=== PATIENT | male | born 1985 | race Native Hawaiian/Other Pacific Islander ===

== ENCOUNTER 2016-06-02 03:59 | Emergency (ER) | payer SELFPAY ==
[2016-06-02] MEDS ORDERED: MORPHINE ONE (04:21)
[2016-06-02] MEDS ORDERED: ZOFRAN ONE ×2 (04:21→08:39)
[2016-06-02] MEDS ORDERED: ZOFRAN IM ONE ×2 (04:30→09:26)
[2016-06-02] MEDS ORDERED: MORPHINE IM ONE (04:30)
--- NOTE | 2016-06-02 07:32 | XRay Report ---
LEFT ANKLE, 3 views: History: Pain, deformity. There is severe soft tissue swelling. Subtle nondisplaced fracture lines are identified in the distal tibial metaphysis. Extension to the tibiotalar joint is demonstrated on the lateral view. No calcified callus. The distal fibula and talar dome are unremarkable. Normal ankle mortise. IMPRESSION: Nondisplaced distal tibial fracture with extension to the tibiotalar joint. Consider further evaluation with CT. Soft tissue swelling.
--- NOTE | 2016-06-02 07:34 | XRay Report ---
LEFT TIBIA/FIBULA: History: Pain after fall. Left ankle exam performed same day was reviewed. A nondisplaced oblique fracture through the proximal fibular shaft is identified. This fracture is approximately 13 cm distal to the knee joint. No calcified callus. The distal tibial fracture with extension to the tibiotalar joint is again noted. Severe soft tissue swelling. IMPRESSION: Proximal fibular fracture and distal tibial fracture, traumatic.
[2016-06-02] MEDS ORDERED: BENADRYL PO ONE ×2 (08:40→09:26)
[2016-06-02] MEDS ORDERED: DILAUDID ONE (08:40)
[2016-06-02] MEDS ORDERED: DILAUDID IM ONE (08:43)
[2016-06-02] MEDS ORDERED: ZOFRAN ODT PO ONE (08:43)
--- NOTE | 2016-06-02 08:59 | Emergency Department Report ---
ED General Adult HPI - General Chief complaint: Extremity Injury, Lower Stated complaint: LT LEG INJURY Time Seen by Provider: 06/02/16 08:09 Source: patient Mode of arrival: Wheelchair Limitations: No Limitations - History of Present Illness Initial comments: Patient states that he fell down the stairs yesterday evening. He denies any other injury besides his left ankle. He complains of moderate pain there but no weakness or numbness distally. -: Sudden Location: left, lower extremity Quality: aching Consistency: intermittent Improves with: none Worsens with: movement Associated Symptoms: denies other symptoms Treatments Prior to Arrival: none - Related Data Previous Rx's Medication Instructions Recorded Last Taken Type Acetaminophen/Codeine [Tylenol #3] 1 tab PO Q6H PRN #20 tab 11/18/14 Unknown Rx Albuterol Sulfate [Ventolin HFA] 2 puff IH Q4H PRN #1 hfa.aer.ad 11/18/14 Unknown Rx Amoxicillin [Trimox CAP] 500 mg PO Q8H #30 capsule 11/18/14 Unknown Rx Cyclobenzaprine [Flexeril 10 MG 10 mg PO TID PRN #30 tablet 11/18/14 Unknown Rx TAB] predniSONE [Deltasone] 40 mg PO QDAY #10 tab 11/18/14 Unknown Rx Ibuprofen [Motrin 800 MG tab] 800 mg PO Q8HR PRN #30 tablet 09/13/15 Unknown Rx Oxycodone HCl/Acetaminophen 1 each PO Q6HR PRN #20 tablet 11/16/15 Unknown Rx [Percocet 7.5/325 mg] Rifampin 300 mg PO BID #20 capsule 11/16/15 Unknown Rx Sulfamethoxazole/Trimethoprim 1 each PO BID #28 tablet 11/16/15 Unknown Rx [Bactrim DS TAB] Oxycodone HCl/Acetaminophen 1 each PO Q6HR PRN #20 tablet 06/02/16 Unknown Rx [Percocet 7.5/325 mg] Allergies Allergy/AdvReac Type Severity Reaction Status Date / Time No Known Allergies Allergy Verified 06/02/16 04:17 ED Review of Systems ROS: Stated complaint: LT LEG INJURY Other details as noted in HPI Comment: All other systems reviewed and negative ED Past Medical Hx - Past Medical History Previous Medical History?: Yes Hx Asthma: Yes - Surgical History Past Surgical History?: Yes - Social History Smoking Status: Current Every Day Smoker Substance Use Type: Alcohol - Medications Home Medications: Home Medications Medication Instructions Recorded Confirmed Last Taken Type Acetaminophen/Codeine [Tylenol #3] 1 tab PO Q6H PRN #20 tab 11/18/14 Unknown Rx Albuterol Sulfate [Ventolin HFA] 2 puff IH Q4H PRN #1 hfa.aer.ad 11/18/14 Unknown Rx Amoxicillin [Trimox CAP] 500 mg PO Q8H #30 capsule 11/18/14 Unknown Rx Cyclobenzaprine [Flexeril 10 MG 10 mg PO TID PRN #30 tablet 11/18/14 Unknown Rx TAB] predniSONE [Deltasone] 40 mg PO QDAY #10 tab 11/18/14 Unknown Rx Ibuprofen [Motrin 800 MG tab] 800 mg PO Q8HR PRN #30 tablet 09/13/15 Unknown Rx Oxycodone HCl/Acetaminophen 1 each PO Q6HR PRN #20 tablet 11/16/15 Unknown Rx [Percocet 7.5/325 mg] Rifampin 300 mg PO BID #20 capsule 11/16/15 Unknown Rx Sulfamethoxazole/Trimethoprim 1 each PO BID #28 tablet 11/16/15 Unknown Rx [Bactrim DS TAB] Oxycodone HCl/Acetaminophen 1 each PO Q6HR PRN #20 tablet 06/02/16 Unknown Rx [Percocet 7.5/325 mg] ED Physical Exam - General Limitations: No Limitations General appearance: alert, in no apparent distress - Head Head exam: Present: atraumatic, normocephalic - Eye Eye exam: Present: normal appearance. Absent: scleral icterus - ENT ENT exam: Present: normal exam, mucous membranes moist - Neck Neck exam: Present: normal inspection. Absent: tenderness - Respiratory Respiratory exam: Present: normal lung sounds bilaterally. Absent: respiratory distress - Cardiovascular Cardiovascular Exam: Present: regular rate, normal rhythm. Absent: systolic murmur, diastolic murmur, rubs, gallop - GI/Abdominal GI/Abdominal exam: Present: soft, normal bowel sounds. Absent: distended, tenderness, guarding, rebound, rigid - Rectal Rectal exam: Present: deferred - Extremities Exam Extremities exam: Present: other (ecchymosis and 2+ edema of the ankle. Skin is intact neurovascular exam is intact) - Back Exam Back exam: Present: normal inspection. Absent: CVA tenderness (R), CVA tenderness (L), muscle spasm, paraspinal tenderness, vertebral tenderness - Neurological Exam Neurological exam: Present: alert, oriented X3, CN II-XII intact. Absent: motor sensory deficit - Psychiatric Psychiatric exam: Present: normal affect, normal mood - Skin Skin exam: Present: warm, dry, intact, normal color. Absent: rash ED Course Vital Signs 06/02/16 04:17 Temperature 98.5 F Pulse Rate 97 H Respiratory 18 Rate Blood Pressure 147/84 O2 Sat by Pulse 99 Oximetry - Reevaluation(s) Reevaluation #1: Posterior splint elevation analgesia and orthopedic referral 06/02/16 08:59 ED Medical Decision Making - Radiology Data Radiology results: report reviewed interpreted by me: Largely nondisplaced but intra-articular fracture of the distal tibia. I do note the talus has a company but the etiology is has not read that as a buckle fracture. Critical care attestation.: If time is entered above; I have spent that time in minutes in the direct care of this critically ill patient, excluding procedure time. ED Disposition Clinical Impression: Fracture of tibia, distal, closed Qualifiers: Encounter type: initial encounter Fracture morphology: unspecified fracture morphology Laterality: left Qualified Code(s): S82.302A - Unspecified fracture of lower end of left tibia, initial encounter for closed fracture Disposition: DISCHARGED TO HOME OR SELFCARE Is pt being admited?: No Does the pt Need Aspirin: No Condition: Stable Instructions: Ankle Fracture (ED) Additional Instructions: Icepack this morning and elevate next several days. Rx for pain. Orthopedic follow-up is essential. See referral. Prescriptions: Oxycodone HCl/Acetaminophen [Percocet 7.5/325 mg] 1 each PO Q6HR PRN #20 tablet PRN Reason: Pain Referrals: PRIMARY CAREMD [Primary Care Provider] - 3-5 Days ATRA EATON MD [Staff Physician] - 2-3 Days Time of Disposition: 09:03
[2016-06-02] MEDS ORDERED: ZOFRAN PO ONE (09:30)
[2016-06-02 09:31] VITALS: BP 140/87
== END 2016-06-02 09:32 | disposition home or self-care (01) ==
LOC: ED 03:59
DX: S82.302A Unspecified fracture of lower end of left tibia, initial encounter for closed fracture (principal); J45.909 Unspecified asthma, uncomplicated; F17.200 Nicotine dependence, unspecified, uncomplicated; W10.9XXA Fall (on) (from) unspecified stairs and steps, initial encounter; Y93.9 Activity, unspecified; Y92.9 Unspecified place or not applicable; Y99.9 Unspecified external cause status
CPT/HCPCS: 29515; 73590; 73610; 96372; 99284; J1170; J2270; J2405; Q0162

== ENCOUNTER 2016-06-16 08:13 | Emergency (ER) | payer SELFPAY ==
[2016-06-16 08:38] VITALS: BP 138/94
--- NOTE | 2016-06-19 12:31 | ED Elopement Review ---
ED Pt Elopement review - Call Back decision Pt Call Back Decision: No action required
== END 2016-06-16 08:35 | disposition left against medical advice (07) ==
LOC: ED 08:13
DX: M79.89 Other specified soft tissue disorders (principal); Z53.21 Procedure and treatment not carried out due to patient leaving prior to being seen by health care provider